=== PATIENT | female | born 1970 | race Caucasian/White ===

== ENCOUNTER 2017-05-03 08:36 | Emergency (ER) | payer MEDICAID ==
[~2017-05-03] VITALS: Ht 167.6 cm; Wt 119.0 kg
[2017-05-03 08:39] VITALS: Ht 167.6 cm; Wt 119.0 kg
[2017-05-03] MEDS ORDERED: KETOROLAC 60 MG INJ IM STA (09:12)
--- NOTE | 2017-05-03 10:17 | RADRPT ---
PROCEDURE: Chest Radiograph. CLINICAL INDICATION: Chest pain. Upper back pain. TECHNIQUE: Single frontal chest radiograph. COMPARISON: None available FINDINGS: The cardiomediastinal silhouette is within normal limits. No infiltrate or effusion is seen. Th e bones are intact. IMPRESSION: 1. Unremarkable chest radiograph. RPTAT: KK .Hi Ahuja MD, MD Date Time Electronically viewed and signed by .Hi Ahuja MD, on 05/03/2017 10:17 .B/
--- NOTE | 2017-05-03 10:18 | RADRPT ---
PROCEDURE: XR Cervical Spine. CLINICAL INDICATION: Neck pain TECHNIQUE: 4 views of the cervical spine were performed. [facility] COMPARISON: None. FINDINGS: Study is limited as C7 is not visualized on the lateral views. The normal lumbar lordosis is presen t. Alignment is intact. There is no evidence of acute fracture or dislocation. Vertebral body hei ghts are well maintained. Intervertebral disc heights are well maintained. The odontoid is well ce ntered within the lateral masses of C1. The prevertebral soft tissues are within normal limits. Pl ease note the setting of trauma, CT should be considered to exclude occult fracture. IMPRESSION: 1. Limited study with nonvisualization of C7. Consider CT if indicated. 2. Otherwise unremarkable cervical spine series. RPTAT: KK .Hi Ahuja MD, Date Time Electronically viewed and signed by .Hi Ahuja MD, MD on 05/03/2017 10:18 .B/
[2017-05-03] MEDS ORDERED: CYCL-319 PO (10:57)
[2017-05-03] MEDS ORDERED: IBUP-1542 PO (10:57)
[2017-05-03 11:47] VITALS: BP 127/71; PULSE 65; RESP 16; TEMP 97.7
--- NOTE | 2017-05-03 13:27 | ERD ---
ER Documentation Chief Complaint Date/Time DATE: 05/03/17 TIME: 13:20 Chief Complaint BIB SELF C/O BACK AND RIGHT ARM PAIN. DENIES INJURY HPI 46 year old female patient with a past medical history of hypertension presents to the ED complaining of upper back pain that started 5 months ago. Reports that sometimes she has neck pain and feels like her bilateral arms are swollen. Denies any injury. Denies any heavy lifting. Reports that when she breathes in and out, it worsens the pain in her back. Reports that she did not try taking any medications at home. Denies any wheezing, cough, fever, chills, abdominal pain, nausea, vomiting, diarrhea or rashes. Denies any recent traveling. Denies any leg swelling. ROS All systems reviewed and are negative except as per history of present illness. Medications Home Meds Active Scripts Cyclobenzaprine Hcl* (Cyclobenzaprine Hcl*) 10 Mg Tablet, 10 MG PO TID, #15 TAB Prov:MAGALIE ESPINOSA PA-C 05/03/17 Ibuprofen* (Motrin*) 600 Mg Tab, 600 MG PO Q6, #30 TAB Prov:MAGALIE ESPINOSA PA-C 05/03/17 Allergies Allergies: Coded Allergies: No Known Drug Allergy (Verified Allergy, Unknown, 06/28/07) PMhx/Soc Medical and Surgical Hx: pt denies Medical Hx, pt denies Surgical Hx Hx Alcohol Use: No Hx Substance Use: No Hx Tobacco Use: No Smoking Status: Never smoker Physical Exam Vitals Vital Signs Date Time Temp Pulse Resp B/P Pulse Ox O2 Delivery O2 Flow Rate FiO2 05/03/17 11:47 97.7 65 16 127/71 99 Room Air 05/03/17 08:39 97.8 82 18 168/89 98 Physical Exam Const: [id number]-wqg-kxsgsyilr, well-nourished. In no acute distress. Head: Atraumatic, normocephalic Eyes: Normal Conjunctiva without injection. No purulent discharge. ENT: Normal external ear, nose. Moist oropharynx without tonsillar exudates. Non -erythematous pharynx. Uvula midline. No drooling. No trismus. Neck: Slight cervical midline tenderness. Full range of motion. No meningismus. No cervical lymphadenopathy. No JVD. Resp: Clear to auscultation bilaterally. No wheezing, rhonchi, rales, or crackles. No accessory muscle use. No retractions. Cardio: Regular rate and rhythm. No murmurs, rubs or gallops. Abd: Soft, nontender, non distended. Normal bowel sounds. No palpable masses. No rebound tenderness. No guarding. Negative McBurney's point. Negative psoas sign. Negative obturator sign. Skin: No petechiae or rashes Back: No midline tenderness. Upper back trapezius pain. No CVA tenderness. Ext: No cyanosis, or edema. Neur: Awake and alert. Normal gait. Normal coordination. Psych: Normal Mood and Affect Results 24 hrs Current Medications Medications (Trade) Dose Ordered Sig/[place] PRN Reason Start Time Stop Time Status Last Admin Dose Admin Ketorolac Tromethamine (Toradol) 60 mg ONCE STAT IM 05/03/17 09:12 05/03/17 09:17 DC 05/03/17 09:27 Procedures/MDM 46-year-old female patient with a past medical history of hypertension presents to the ED complaining of upper back pain, neck pain and pain worsen when she takes deep breaths. Patient is afebrile and nontoxic-appearing. Patient's blood pressure was noted to be 160/89. Patient's blood pressure was elevated (> 120/80) but appears stable without evidence of hypertension emergency or urgency. The patient was counseled about the risks of hypertension and urged to pursue outpatient monitoring and therapy within a week with their primary care physician. An EKG, chest x-ray, neck x-ray was ordered to further evaluate patient. EKG reviewed and interpreted by Dr. Rothman Rate/Rhythm: [71 bpm, Normal Sinus Rhythm] No ectopy, no ST elevations, normal axis. QRS, ST, T-waves: [No changes consistent w/ acute ischemia] Impression: [No evidence of ischemia or arrhythmia] PROCEDURE: XR Cervical Spine. CLINICAL INDICATION: Neck pain TECHNIQUE: 4 views of the cervical spine were performed. The images were reviewed on a PACS workstation. COMPARISON: None. FINDINGS: Study is limited as C7 is not visualized on the lateral views. The normal lumbar lordosis is present. Alignment is intact. There is no evidence of acute fracture or dislocation. Vertebral body heights are well maintained. Intervertebral disc heights are well maintained. The odontoid is well centered within the lateral masses of C1. The prevertebral soft tissues are within normal limits. Please note the setting of trauma, CT should be considered to exclude occult fracture. IMPRESSION: 1. Limited study with nonvisualization of C7. Consider CT if indicated. 2. Otherwise unremarkable cervical spine series. PROCEDURE: Chest Radiograph. CLINICAL INDICATION: Chest pain. Upper back pain. TECHNIQUE: Single frontal chest radiograph. COMPARISON: None available FINDINGS: The cardiomediastinal silhouette is within normal limits. No infiltrate or effusion is seen. The bones are intact. IMPRESSION: 1. Unremarkable chest radiograph. Patient culd likely have musculoskeletal pain. Low suspicion for acute myocardial infarction, pneumothorax, pneumonia, cardiac tamponade, pulmonary embolism, AAA, aortic dissection, Boerhaave's syndrome, cardiac dysrhythmias, meningitis, intracranial bleed, seizure, stroke, TIA or other emergent conditions. Patient is ambulating here in the ED without difficulty. Denies saddle anesthesia, numbness or tingling, urine or bowel incontinence, weakness. Low suspicion for cauda equina syndrome, cord compression, nephrolithiasis, aortic aneurysm, aortic dissection, epidural abscess, spinal hematoma, malignancy, pyelonephritis, or other emergent conditions. Discharge medications: Flexeril, Ibuprofen Follow up with primary care physician in 1-2 days. Instructed patient to return to the ED sooner for any worsening symptoms. Patient's questions were answered. Patient understood and agreed with discharge plan. Patient discharged stable. Departure Diagnosis: Primary Impression: Back pain Back pain location: back pain in unspecified location Chronicity: unspecified Back pain laterality: unspecified Qualified Code: M54.9 - Back pain, unspecified back location, unspecified back pain laterality, unspecified chronicity Condition: Stable Patient Instructions: Back Pain (Acute Or Chronic) Referrals: [facility] YOU HAVE RECEIVED A MEDICAL SCREENING EXAM AND THE RESULTS INDICATE THAT YOU DO NOT HAVE A CONDITION THAT REQUIRES URGENT TREATMENT IN THE EMERGENCY DEPARTMENT. FURTHER EVALUATION AND TREATMENT OF YOUR CONDITION CAN WAIT UNTIL YOU ARE SEEN IN YOUR DOCTORS OFFICE WITHIN THE NEXT 1-2 DAYS. IT IS YOUR RESPONSIBILITY TO MAKE AN APPOINTMENT FOR FOLOW-UP CARE. IF YOU HAVE A PRIMARY DOCTOR --you should call your primary doctor and schedule an appointment IF YOU DO NOT HAVE A PRIMARY DOCTOR YOU CAN CALL OUR PHYSICIAN REFERRAL HOTLINE AT IF YOU CAN NOT AFFORD TO SEE A PHYSICIAN YOU CAN CHOSE FROM THE FOLLOWING [facility] CLINICS [facility] [address] [place] [facility] [address] [facility] [address] [facility] [address] [facility] [address] [facility]. [facility]. [address] [facility]. [facility] YOU HAVE RECEIVED A MEDICAL SCREENING EXAM AND THE RESULTS INDICATE THAT YOU DO NOT HAVE A CONDITION THAT REQUIRES URGENT TREATMENT IN THE EMERGENCY DEPARTMENT. FURTHER EVALUATION AND TREATMENT OF YOUR CONDITION CAN WAIT UNTIL YOU ARE SEEN IN YOUR DOCTORS OFFICE WITHIN THE NEXT 1-2 DAYS. IT IS YOUR RESPONSIBILITY TO MAKE AN APPOINTMENT FOR FOLOW-UP CARE. IF YOU HAVE A PRIMARY DOCTOR --you should call your primary doctor and schedule and appointment IF YOU DO NOT HAVE A PRIMARY DOCTOR YOU CAN CALL OUR PHYSICIAN REFERRAL HOTLINE AT . IF YOU CAN NOT AFFORD TO SEE A PHYSICIAN YOU CAN CHOSE FROM THE FOLLOWING [facility] INSTITUTIONS: [facility] [address] [place] [address] [facility] [address] [place] [address] [facility] [address] [place] [address] [facility]CIALT[facility] Additional Instructions: La medicina que se le recet puede causarle sueo.NO DEBE MANEJAR NI OPERAR MAQUINARIAS PELIGROSAS mientras esta tomando esta medicina! Llame al doctor MAANA y keely meghan SANDEE PARA DENTRO DE 2-3 FONTENOT.Dgale a la secretaria que nosotros le instruimos hacer esta sandee.Avise o llame si davis condicin se empeora antes de la sandee. Regresa aqui si peor o no mejor. MAGALIE ESPINOSA PA-C May 03, 2017 13:27
== END 2017-05-03 11:50 | disposition home or self-care (01) ==
LOC: FTE 08:36
DX: M54.9 Dorsalgia, unspecified (principal); I10 Essential (primary) hypertension
CPT/HCPCS: 71010; 72040; 93005; 96372; J1885; Z7502